=== PATIENT | female | born 1965 | race Caucasian/White ===

== ENCOUNTER 2019-06-23 08:13 | Inpatient (IN) | payer OTHER ==
[2019-06-20 18:11] VITALS: BMI 21.8
--- NOTE | 2019-06-21 14:42 | HP ---
Admitting History and Physical - Primary Care Physician PCP: Hector Crawford - Admission Chief Complaint: BRCA positive History of Present Illness: 53 year old postmenapausal female with strong family H/O breast cancer and BRCA2 +. TAHBSO prophylactically 2014 benign . mammogram and US were dne 11/10/2018 whch showed cystic changes. Breast MRI 12/2018 was negative. History Source: Patient Limitations to Obtaining History: No Limitations - Past Medical History Gastrointestinal: Yes: GERD ...LMP Comment: 2013 - Past Surgical History Past Surgical History: Yes: Hysterectomy (TAHBSO 2013 benign) - Advance Directives Advance Directives: Yes: Health Care Proxy - Smoking History Smoking history: Never smoked Have you smoked in the past 12 months: No - Alcohol/Substance Use Hx Alcohol Use: Yes (SOCIAL) Home Medications - Allergies Allergies/Adverse Reactions: Allergies Allergy/AdvReac Type Severity Reaction Status Date / Time levofloxacin [From Levaquin] Allergy Severe DIZZINESS Verified 06/20/19 18:16 Sulfa (Sulfonamide Allergy Severe Rash Verified 06/20/19 18:15 Antibiotics) - Home Medications Home Medications: Ambulatory Orders Fluticasone Prop 0.05% Nasal [Flonase -] 1 - 2 spray NS DAILY 06/20/19 Lansoprazole [Prevacid] 30 mg PO DAILY 06/20/19 Multivitamins [Tab-A-Vit -] 1 tab PO DAILY 06/20/19 Family Medical History Family Hx Cancer: Grandmother (maternal) (uterine ca), Mother (uterine/ fallopian cancer 54) Other Family History: mat [place] breast ca 60. mat cousins x 2 uterine ca 54 and another with lymphoma 35 Physical Examination Constitutional: Yes: No Distress Breast(s): Yes: Other (moderately ptotic C cup breasts no skin changes no palpable densities or adenopathy) Problem List - Problems (1) BRCA2 gene mutation positive in female Code(s): Z15.01 - GENETIC SUSCEPTIBILITY TO MALIGNANT NEOPLASM OF BREAST; Z15.02 - GENETIC SUSCEPTIBILITY TO MALIGNANT NEOPLASM OF OVARY; Z15.09 - GENETIC SUSCEPTIBILITY TO OTHER MALIGNANT NEOPLASM Assessment/Plan Bilateral total mastectomies with reconstruction
[2019-06-23] MEDS ORDERED: BUPIVACAINE HCL/PF 2.5 MG/ML - 30 ML VIAL IJ ONE (09:09)
[2019-06-23] MEDS ORDERED: PROPOFOL 20 ML ONE ×2 (09:11→12:10)
[2019-06-23] MEDS ORDERED: GENTAMICIN SO4 80 MG/2 ML VIAL ONE (09:12)
[2019-06-23] MEDS ORDERED: MIDAZOLAM HCL 2 MG/2 ML SINGLE DOSE VIAL ONE (09:12)
[2019-06-23] MEDS ORDERED: ceFAZolin SODIUM 1 GM VIAL ONE ×2 (09:12→09:15)
[2019-06-23] MEDS ORDERED: BUPIVACAINE LIPOSOME/PF (EXPAREL) 266 MG/20 ML VIAL ONE (09:13)
[2019-06-23] MEDS ORDERED: LIDOCAINE HCL/PF 2% SDV 5ML VIAL ONE (09:14)
[2019-06-23] MEDS ORDERED: ONDANSETRON 4 MG/2 ML VIAL IVPUSH PRN ×2 (09:16→12:49)
[2019-06-23] MEDS ORDERED: oxyCODONE HCL 5 MG TABLET PO PRN (09:16)
[2019-06-23] MEDS ORDERED: DEXAMETHASONE SOD PHOSPHATE 4 MG/1 ML VIAL ONE (09:40)
[2019-06-23] MEDS ORDERED: PATIENT'S OWN MEDICATION (NON-FORMULARY) (Lansoprazole [Prevacid] 30 MG) PO SCH (10:00)
[2019-06-23] MEDS ORDERED: FLUTICASONE PROP 0.05% 16 GM NASAL SPRAY NS SCH (10:00)
[2019-06-23] MEDS ORDERED: ROCURONIUM BROMIDE 50 MG/5 ML SYRINGE ONE (10:54)
[2019-06-23] MEDS ORDERED: BUPIVACAINE LIPOSOME/PF (EXPAREL) 266 MG/20 ML VIAL NR ONE (11:02)
[2019-06-23] MEDS ORDERED: BUPIVACAINE HCL/PF 0.25% (2.5MG/ML) 10 ML VIAL IJ ONE (11:02)
[2019-06-23] MEDS ORDERED: NEOSTIGMINE METHYLSULFATE 0.5 MG/ML - 10 ML MDV ONE (12:07)
--- NOTE | 2019-06-23 12:45 | OP ---
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
--- NOTE | 2019-06-23 12:47 | SURG ---
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 For further detail, please refer to operative report. Visit type - Case Type Case Type: Scheduled - Emergency Emergency Visit: No - New patient This patient is new to me today: Yes Date on this admission: 06/23/19
[2019-06-23] MEDS ORDERED: PROMETHAZINE HCL 25 MG/1 ML VIAL IVPUSH PRN (12:49)
--- NOTE | 2019-06-23 14:21 | OP ---
DATE OF OPERATION: 06/23/2019 PREOPERATIVE DIAGNOSIS: Genetic susceptibility for breast cancer BRCA2 positive. POSTOPERATIVE DIAGNOSIS: Genetic susceptibility for breast cancer BRCA2 positive status post bilateral mastectomies. PROCEDURE: Bilateral nipple-sparing mastectomies through an inferolateral approach with bilateral subpectoral direct implant reconstruction with Cortiva. ANESTHESIA: General endotracheal anesthesia. PRIMARY SURGEON: Velasquez Allen MD PUBLISHING EDITOR: VALERY Bernard PRIMARY SURGEON FOR THE BILATERAL DIRECT IMPLANT RECONSTRUCTION WITH CORTIVA: Velasquez Levy MD COMPLICATIONS: There were no complications. HISTORY: Briefly, the patient is a 53-year-old postmenopausal female of [place] descent with a family history with her mother who had uterine and fallopian tube cancer at age 54. Her maternal grandmother had uterine cancer. Her maternal great aunt had breast cancer in her 60s, and 2 maternal aunts had breast cancer at age 65 and 69. The patient ended up testing BRCA2 positive in 2012 and underwent a prophylactic MITALI/BSO in 2013. She decided to undergo risk reduction prophylactic mastectomy and had a mammography back in October 2018, which was negative. An MRI in December 2018 was negative. The patient was seen in the office and understood the risk reduction offered by prophylactic mastectomy and understood all risks, complications of the procedure. She understood our nipple-sparing technique and the fact that we do retroareolar biopsies at the time of surgery. If these show cancer, we would remove the nipples. She understood the lack of any evidence shown for doing prophylactic sentinel lymph node biopsy. She was seen by Plastic Surgery preoperatively and chose to have direct implant reconstruction with acellular dermal matrix. DESCRIPTION OF PROCEDURE: She was brought in for the procedure on June 23, 2019. In the holding area, site verification was made, and informed consent was obtained. She was marked preoperatively by the plastic surgeon. She was brought into the operating room and laid on the OR table in a supine position. Venodynes were placed on the lower extremities prior to induction. She received 2 g of Ancef prior to incision. Both breasts were sterilely prepped and draped in the usual fashion, and she underwent general endotracheal anesthesia. Time-out was performed. Bilateral inferior mammary incisions were marked out in the inframammary folds about 10 cm in length. A left mastoidectomy was 1st performed. Incision was made and the skin edges were everted and the breast was retracted inferiorly using Celio clamps. Skin flap was raised using the Peak radiofrequency device superiorly to the level of the clavicle, medially to the level of the sternum, laterally to the level of the latissimus, and inferiorly below the level of the inframammary fold. The breast was taken out off the pectoralis major muscle using electrocautery from inferomedial to superolateral and completely removed intact. It was oriented with a long lateral, short superior suture and weighted to allow for appropriate cosmetic result. Skin flaps were trimmed to remove all visible breast tissue and to obtain good cosmetic result. Retroareolar biopsy was taken underneath the left nipple areolar complex and sent for frozen section, came back negative, so the left nipple was spared. The wound was then copiously irrigated with warm, sterile saline, and hemostasis was achieved. The right breast was then approached. Again, a symmetrical 10-cm inframammary incision was made, and the skin edges were everted. The breast was retracted inferiorly using Wayan clamps, and the skin flap was raised using the Peak radiofrequency device superiorly to the level of the clavicle, medially to the level of the sternum, laterally and to the level above the latissimus, and inferiorly below the level of the inframammary fold. The breast was taken out off the pectoralis major muscle using electrocautery from inferomedial to superolateral and completely removed intact. It was oriented with a long lateral, short superior suture, and weighted to allow for appropriate cosmetic result. Skin flaps were trimmed and visualized to remove all visible breast tissue and for a good cosmetic result. A retroareolar biopsy was taken underneath the right nipple areolar complex and sent for frozen section and came back benign, so the right nipple was spared. Hemostasis was achieved, and the wound was copiously irrigated with warm sterile saline. At this point, Dr. Levy became the primary surgery, and he performed bilateral subpectoral direct implant reconstructions using Cortiva. The Cortiva was sewn into the inferolateral aspects of both pectoralis major muscles to allow for the direct implant reconstruction. Two Karl drains would be placed around each implant and brought through separate stab incisions on the lateral skin flaps and sutured in place using a 3-0 nylon suture. All wounds would be closed separately by Plastic Surgery. The patient will be extubated and recovered in the post anesthesia care unit. She will be admitted postoperatively for pain and wound management. We did inject Exparel 20 mL diluted in 20 mL of saline and 20 mL of Marcaine, and this was injected into the chest up bilaterally prior to the implant reconstructions for postoperative pain control. The patient will be admitted postoperatively for pain and wound management. All sponge and needle counts were correct at the end of the case, and estimated blood loss was about 125 mL. She was hemodynamically stable throughout. VELASQUEZ ALLEN M.D. [id number]
[2019-06-23] MEDS: CEFAZOLIN 1 GM/D5W 1 GRAM/50 ML BAG IVPB SCH ×2 (15:27→21:20)
[2019-06-23] MEDS: LACTATED RINGERS SOLUTION 1,000 ML IV SCH (15:42)
[2019-06-23] MEDS: DEXTROSE 5%-0.45% SALINE 1,000 ML IV SCH (15:42)
[2019-06-23] MEDS: oxyCODONE HCL 5 MG TABLET PO PRN ×2 (19:34→23:07)
[2019-06-23] MEDS: ACETAMINOPHEN 325 MG TABLET (FP) PO PRN (23:07)
[2019-06-24] MEDS: diazePAM 5 MG TABLET PO PRN ×3 (00:04→22:19)
[2019-06-24] MEDS: ACETAMINOPHEN 325 MG TABLET (FP) PO PRN ×4 (03:21→20:31)
[2019-06-24] MEDS: oxyCODONE HCL 5 MG TABLET PO PRN ×5 (03:22→20:31)
[2019-06-24] MEDS: CEFAZOLIN 1 GM/D5W 1 GRAM/50 ML BAG IVPB SCH ×4 (03:23→20:31)
[2019-06-24 08:00] LABS: HEMATOCRIT 30.7 % (32.4-45.2); HEMOGLOBIN 10.1 GM/dl (10.7-15.3); MCH 29.9 pg (25.7-33.7); MCHC 32.8 g/dl (32.0-36.0); MEAN CELL VOLUME 91.3 fl (80-96); MEAN PLT VOLUME 8.7 fl (7.5-11.1); PLATELET COUNT 168 K/MM3 (134-434); RBC 3.36 M/mm3 (3.60-5.2); WHITE BLOOD COUNT 6.1 K/mm3 (4.0-10.8)
[2019-06-24] MEDS: FLUTICASONE PROP 0.05% 16 GM NASAL SPRAY NS SCH (09:22)
[2019-06-24] MEDS: PANTOPRAZOLE 40 MG TABLET (FP) PO SCH (09:22)
--- NOTE | 2019-06-24 09:26 | PN ---
Progress Note (short form) - Note Progress Note: POD #1 bilateral nipple sparing mastectomy with prepectoral reconstruction with mesh and ADM. Patient seen and examined at bedside. Patient states she had some pain overnight which is better controlled. She has been OOB and ambulation without assistance. She is tolerating her diet and denies any CP, SOB, N/V, fever or chills. Vital Signs Temp 98.9 F 06/24/19 03:00 Pulse 77 06/24/19 03:00 Resp 19 06/24/19 03:00 BP 99/53 L 06/24/19 03:00 Pulse Ox 98 06/24/19 08:08 Intake & Output 06/23/19 06/23/19 06/24/19 11:59 23:59 11:59 Intake Total 1750 Output Total 590 75 Balance 1160 -75 Weight 127 lb Intake: IV 1200 D5-1/2Ns - 1,000 ml @ 100 400 mls/hr IV ASDIR BASHIR Rx#: [id number] IVPB 50 Oral 500 Output: Drainage 140 75 LEFT #1 0 20 LEFT #2 20 5 RIGHT #3 10 40 RIGHT #4 60 10 Urine 300 Void 300 Estimated Blood Loss 150 Other: Voiding Method Toilet Toilet # Unmeasured Voids Void 3 Height 5 ft 4 in Body Mass Index (BMI) 21.8 Weight Measurement Method Standing Scale CBC, BMP 06/24/19 07:21 PE: A&Ox3, NAD unlabored resp on RA Breasts, b/l flaps well perfused (Ioban dressing) nipples are pink and well perfused, incisions c/d/i with steris in place, SHARLA drains x 4 in good position and draining well. Problem List - Problems (1) BRCA2 gene mutation positive in female Assessment/Plan: Problem List Assessment/Plan: POD #1 bilateral nipple sparing mastectomy with prepectoral reconstruction with mesh and ADM, patient doing well. -Sydnie hugger to chest at all times when in bed. -OOB as tolerated -Encourage daily IS -surgical bra at all times -d/c planning for home Code(s): Z15.01 - GENETIC SUSCEPTIBILITY TO MALIGNANT NEOPLASM OF BREAST; Z15.02 - GENETIC SUSCEPTIBILITY TO MALIGNANT NEOPLASM OF OVARY; Z15.09 - GENETIC SUSCEPTIBILITY TO OTHER MALIGNANT NEOPLASM
--- NOTE | 2019-06-24 09:53 | PN ---
Progress Note, Physician Chief Complaint: High risk breast cancer due to gene positivity S/P bilateral total mastectomies implant and acellular matrix reconstruction POD#! History of Present Illness: Pain controlled with oxycodone and valium ,no nausea or fever , OOB - Current Medication List Current Medications: Active Medications Acetaminophen (Tylenol -) 650 mg PO Q4H PRN PRN Reason: FEVER Last Admin: 06/24/19 08:17 Dose: 650 mg Diazepam (Valium -) 5 mg PO BID PRN PRN Reason: MUSCLE SPASMS Last Admin: 06/24/19 09:21 Dose: 5 mg Fluticasone Propionate (Flonase -) 1 - 2 spray NS DAILY REPLACED BY [facility] Last Admin: 06/24/19 09:22 Dose: 1 spray Cefazolin Sodium (Ancef 1 Gm Premixed Ivpb -) 1 gram in 50 mls @ 100 mls/hr IVPB Q6H-IV BASHIR Stop: 06/30/19 14:59 Last Admin: 06/24/19 08:20 Dose: 100 mls/hr Dextrose/Sodium Chloride (D5-1/2ns -) 1,000 mls @ 100 mls/hr IV ASDIR REPLACED BY [facility] Last Admin: 06/23/19 15:42 Dose: Not Given Lactated Ringer's (Lactated Ringers Solution) 1,000 mls @ 125 mls/hr IV ASDIR BASHIR Last Admin: 06/23/19 15:42 Dose: Not Given Ondansetron HCl (Zofran Injection) 4 mg IVPUSH Q6H PRN PRN Reason: NAUSEA AND/OR VOMITING Oxycodone HCl (Roxicodone -) 5 mg PO Q4H PRN PRN Reason: PAIN LEVEL 1-5 Last Admin: 06/23/19 15:39 Dose: 5 mg Oxycodone HCl (Roxicodone -) 10 mg PO Q4H PRN PRN Reason: PAIN LEVEL 6-10 Last Admin: 06/24/19 08:16 Dose: 10 mg Pantoprazole Sodium (Protonix -) 40 mg PO DAILY REPLACED BY [facility] Last Admin: 06/24/19 09:22 Dose: 40 mg - Objective Vital Signs: Vital Signs Temperature 98.9 F 06/24/19 03:00 Pulse Rate 77 06/24/19 03:00 Respiratory Rate 19 06/24/19 03:00 Blood Pressure 99/53 L 06/24/19 03:00 O2 Sat by Pulse Oximetry (%) 98 06/24/19 08:08 Constitutional: Yes: No Distress Breast(s): Yes: Other (Bilateral Flaps viable, incisions intact, no hematoma SHARLA drains functiong well) Labs: CBC, BMP 06/24/19 07:21 Problem List - Problems (1) BRCA2 gene mutation positive in female Code(s): Z15.01 - GENETIC SUSCEPTIBILITY TO MALIGNANT NEOPLASM OF BREAST; Z15.02 - GENETIC SUSCEPTIBILITY TO MALIGNANT NEOPLASM OF OVARY; Z15.09 - GENETIC SUSCEPTIBILITY TO OTHER MALIGNANT NEOPLASM Assessment/Plan Iv antibiotics Spirometry SCD Oxycodone /valium prn OOB
--- NOTE | 2019-06-24 15:22 | PN ---
Progress Note (short form) - Note Progress Note: ANESTHESIA POSTOP 53 YO FEMALE POD#1 S/P BL MASTECTOMY, GETA Patient resting in bed. Tolerating PO. Pain responsive to PO meds. Ambulating and using IS. VSS, Afebrile Continue current care. Encouraged IS and continued ambulation.
[2019-06-24] MEDS: LACTATED RINGERS SOLUTION 1,000 ML IV SCH (15:39)
[2019-06-24] MEDS: DEXTROSE 5%-0.45% SALINE 1,000 ML IV SCH (15:39)
[2019-06-25] MEDS: oxyCODONE HCL 5 MG TABLET PO PRN ×3 (01:00→10:21)
[2019-06-25] MEDS: ACETAMINOPHEN 325 MG TABLET (FP) PO PRN ×2 (01:00→09:05)
[2019-06-25] MEDS: CEFAZOLIN 1 GM/D5W 1 GRAM/50 ML BAG IVPB SCH ×2 (02:03→09:05)
[2019-06-25] MEDS: diazePAM 5 MG TABLET PO PRN (09:05)
[2019-06-25] MEDS ORDERED: PT OWN MED DRAWER 7, Y5N ONE (09:35)
[2019-06-25] MEDS: FLUTICASONE PROP 0.05% 16 GM NASAL SPRAY NS SCH (09:36)
[2019-06-25] MEDS: DEXTROSE 5%-0.45% SALINE 1,000 ML IV SCH (09:36)
[2019-06-25] MEDS: PANTOPRAZOLE 40 MG TABLET (FP) PO SCH (09:36)
[2019-06-25 10:18] VITALS: BP 112/58; PULSE 94; TEMP 98.8
--- NOTE | 2019-06-25 10:23 | PN ---
Progress Note, Physician Chief Complaint: Genetic susceptibility for breast cancer BRCA2+ History of Present Illness: The patient has a strong family history for breast cancer and was found to be BRCA2 positive and decided to undergo bilateral prophylactic nipple sparing mastectomies. She was admitted postoperatively for pain and wound management. - Current Medication List Current Medications: Active Medications Acetaminophen (Tylenol -) 650 mg PO Q4H PRN PRN Reason: FEVER Last Admin: 06/25/19 09:05 Dose: 650 mg Diazepam (Valium -) 5 mg PO BID PRN PRN Reason: MUSCLE SPASMS Last Admin: 06/25/19 09:05 Dose: 5 mg Fluticasone Propionate (Flonase -) 1 - 2 spray NS DAILY [facility] Last Admin: 06/25/19 09:36 Dose: 2 spray Hydromorphone HCl (Dilaudid -) 4 mg PO Q4H PRN PRN Reason: PAIN LEVEL 4 - 6 Cefazolin Sodium (Ancef 1 Gm Premixed Ivpb -) 1 gram in 50 mls @ 100 mls/hr IVPB Q6H-IV BAHSIR Stop: 06/30/19 14:59 Last Admin: 06/25/19 09:05 Dose: 100 mls/hr Dextrose/Sodium Chloride (D5-1/2ns -) 1,000 mls @ 100 mls/hr IV ASDIR [facility] Last Admin: 06/25/19 09:36 Dose: Not Given Lactated Ringer's (Lactated Ringers Solution) 1,000 mls @ 125 mls/hr IV ASDIR BASHIR Last Admin: 06/24/19 15:39 Dose: Not Given Ondansetron HCl (Zofran Injection) 4 mg IVPUSH Q6H PRN PRN Reason: NAUSEA AND/OR VOMITING Oxycodone HCl (Roxicodone -) 5 mg PO Q4H PRN PRN Reason: PAIN LEVEL 1-5 Last Admin: 06/23/19 15:39 Dose: 5 mg Oxycodone HCl (Roxicodone -) 10 mg PO Q4H PRN PRN Reason: PAIN LEVEL 6-10 Last Admin: 06/25/19 05:53 Dose: 10 mg Pantoprazole Sodium (Protonix -) 40 mg PO DAILY [facility] Last Admin: 06/25/19 09:36 Dose: 40 mg - Objective Vital Signs: Vital Signs Temperature 99.5 F 06/25/19 07:57 Pulse Rate 86 06/25/19 07:57 Respiratory Rate 18 06/25/19 07:57 Blood Pressure 96/61 06/25/19 07:57 O2 Sat by Pulse Oximetry (%) 100 06/25/19 07:57 Constitutional: Yes: Well Nourished, No Distress Eyes: Yes: WNL HENT: Yes: WNL Neck: Yes: WNL Cardiovascular: Yes: Regular Rate and Rhythm Respiratory: Yes: Regular, CTA Bilaterally Gastrointestinal: Yes: Normal Bowel Sounds, Soft ...Rectal Exam: Yes: Deferred (Mastectomy wounds clean, dry, and intact. Drains functioning well. Skin flaps warm and viable.) Genitourinary: Yes: WNL Breast(s): Yes: Other Musculoskeletal: Yes: WNL Extremities: Yes: WNL Integumentary: Yes: WNL Wound/Incision: Yes: Clean/Dry, Well Approximated Neurological: Yes: Alert, Oriented ...Motor Strength: WNL Psychiatric: Yes: WNL Labs: CBC, BMP 06/24/19 07:21 Problem List - Problems (1) Genetic susceptibility to breast cancer Assessment/Plan: The patient is doing well POD#2 s/p bilateral nipple sparing mastectomies performed due to genetic susceptibility for breast cancer. Her wounds are clean , dry, and intact. Skin flaps warm and viable. Drains functioning well. She is using oxycontin for pain but tolerable. Stable for discharge today. Home on percocet for pain. Cefadroxil antibiotics. Follow up in office next week. Record drain outputs daily. Drain teaching prior to discharge. Code(s): Z15.01 - GENETIC SUSCEPTIBILITY TO MALIGNANT NEOPLASM OF BREAST
--- NOTE | 2019-06-25 10:29 | DS ---
Physical Examination Vital Signs: Vital Signs Temperature 98.8 F 06/25/19 10:17 Pulse Rate 94 H 06/25/19 10:17 Respiratory Rate 18 06/25/19 10:17 Blood Pressure 112/58 L 06/25/19 10:17 O2 Sat by Pulse Oximetry (%) 100 06/25/19 07:57 Constitutional: Yes: Well Nourished, No Distress Eyes: Yes: WNL HENT: Yes: WNL Neck: Yes: WNL Cardiovascular: Yes: Regular Rate and Rhythm Respiratory: Yes: Regular, CTA Bilaterally Gastrointestinal: Yes: Normal Bowel Sounds, Soft ...Rectal Exam: Yes: Deferred Renal/: Yes: WNL Breast(s): Yes: Other (Matectomy wounds clean, dry, and intact. Skin flaps warm and viable. Drains functioning well.) Musculoskeletal: Yes: WNL Extremities: Yes: WNL Integumentary: Yes: WNL Wound/Incision: Yes: Clean/Dry, Well Approximated Neurological: Yes: Alert, Oriented ...Motor Strength: WNL Psychiatric: Yes: WNL Labs: CBC, BMP 06/24/19 07:21 Discharge Summary Problems reviewed: Yes Reason For Visit: GENETIC SUSCEPTIBILITY Current Active Problems Genetic susceptibility to breast cancer (Acute) Procedures: Principal: Bilateral Nipple Sparing Mastectomies with Subpectoral Direct to Implant Reconstructions with Acellular Dermal Matrix Hospital Course: The patient was admitted postoperatively and had good pain control on oxycontin by POD#2 for discharge. Wounds were clean, dry, and intact and skin flaps were warm and viable. Drains teaching was performed. She is to follow up in 1 week with Drs. Crawford and Cam. No heavy lifting or exercise. No bath/ shower until drains removed. Keep compressive bra in place day and night. Record drain outputs daily. Plan of Treatment: Follow up postoperatively in office in 1 week. Condition: Good - Instructions Diet, Activity, Other Instructions: Post Operative Instructions - [facility] We hope your recovery will be uneventful. For those of you who have been given general anesthesia, there is a possibility you might have some lightheadedness and possibly nausea. It is important that each patient, especially those who have had general anesthesia, follow these instructions, please: 1. Do NOT operate a motor vehicle for 24 hours. 2. Do NOT drink any alcoholic beverages for 24 hours. 3. Do NOT take any sedatives, narcotics, or tranquilizers for 24 hours unless specifically ordered by your surgeon. 4. Do NOT undertake any strenuous exercise or outside activity for 24 hours unless specifically permitted by your surgeon. 5. Eat light foods that are easy to digest. If you have any problems with nausea and vomiting, lie down and rest. If it continues, call your surgeon. 6. Call your surgeon AT ONCE if you have problems with: a. Bleeding b. Urinating c. Excessive pain or drainage d. Numbness If any problems occur, call your physician first. If you cannot reach him/her, call the Ambulatory Surgery Unit at [phone], or the Emergency Room at . Follow up with Drs. Crawford / Cameron in 7 days. Medication: Vicodin E-S OR Percocet 1-2 tablets every 4-6 hrs as needed for 5-7 days. Wound Care: Keep wound dry and clean for 48 hours. You may remove the dressing after 48 hours and may shower. Keep steri-strips in place until follow-up appointment No heavy lifting or strenuous activities. BREAST SURGERY INSTRUCTIONS Kayden Crawford M.D., FACS Hector Crawford M.D., FACS Igor Barnes M.D., FACS 1. Please call the office at to make a follow up appointment with your surgeon. This number can be also used for any urgent issues you may have. 2. Call us immediately if any of the following occur: *Bleeding from the incision or drain site (a small amount is normal) *Fever or chills *Redness and worsening tenderness around the surgical site *Drainage of pus or fluid from the incision or drain site 3. You may change the surgical dressing two (2) days after your surgery, and may shower then. If you have drains, you may shower after they have been removed, until then take a sponge bath. 4. It is normal for there to be some bruising and tenderness around the surgical site, and the breast may also be firm in this area. 5. Your surgeon used 3M DuraPrep Surgical Solution, a bacteria-killing skin preparation. It is recommended that this film remain on the skin after the procedure. The film will gradually wear away. If, however, early removal is desired: 1. Apply 8610 or 8611 3M Remover solution to the prepped area, keeping away from the wound edge or puncture site. Wipe off with a disposable towel. OR 2. Soak gauze with 70% Isopropyl alcohol and place on the prepped area for at least 40 seconds. Lightly scrub to remove the solution. 6. Please wear a comfortable bra (sports or surgical bra) all day and all night until your first follow-up visit with your surgeon. 7. The pain medicine you have been prescribed may make you constipated; make sure you drink plenty of water. You may use an over the counter laxative if needed. 8. You may resume your normal diet after surgery, although you may want to avoid rich foods for the first twenty-four (24) hours after surgery. Alcoholic drinks should be avoided while taking the prescribed pain medicine. 9. You may resume normal activities as long as there is no discomfort, but do not do upper body exercises until after your follow-up appointment. Do not lift anything heavier than a large phone book. You may resume driving once you have stopped taking the prescribed pain medicine and feel comfortable doing arm movements. WEAR BRA, NO shower, Empty and record SHARLA output Referrals: Hector Crawford MD [Staff Physician] - Gagan Levy MD [Staff Physician] - - Home Medications Comprehensive Discharge Medication List: Ambulatory Orders Fluticasone Prop 0.05% Nasal [Flonase -] 1 - 2 spray NS DAILY 06/20/19 Lansoprazole [Prevacid] 30 mg PO DAILY 06/20/19 Multivitamins [Multivit ([facility] Formulary)] 1 tab PO DAILY 06/20/19 Cefadroxil 500 mg PO BID #20 capsule 06/24/19 Diazepam [Valium] 5 mg PO BID PRN #10 tablet MDD 2 06/24/19 Oxycodone HCl/Acetaminophen [Percocet 5-325 mg Tablet] 1 - 2 tab PO Q6H PRN #30 tab MDD 6 06/24/19
--- NOTE | 2019-06-26 13:11 | OP ---
DATE OF OPERATION: 06/23/2019 SURGEON: Velasquez Levy MD SURGEON STAKE DRIVER: Mary Jay PA-C NOTE: This is the combined dictation with Dr. Velasquez Crawford for bilateral implant and AlloDerm reconstruction. PREOPERATIVE DIAGNOSES: 1. Bilateral acquired chest wall deformity status post bilateral mastectomy (611.89). 2. Personal history of genetic carcinoma. POSTOPERATIVE DIAGNOSES: 1. Bilateral acquired chest wall deformity status post bilateral mastectomy (611.89). 2. Personal history of genetic carcinoma. PROCEDURE: 1. Right immediate breast reconstruction utilizing immediate insertion of silicone breast implant and AlloDerm reconstruction. 2. Left immediate breast reconstruction utilizing immediate insertion of silicone breast implant and AlloDerm reconstruction. 3. Intravenous injection of indocyanine green dye and intraoperative diagnostic evaluation of non-coronary intraoperative fluorescein vascular angiography x 2. SURGEON: Dr. Bijal Levy ANESTHESIA: General. OPERATIVE PROCEDURE IN DETAIL: The patient was taken to the operating room. After induction of general anesthesia in the supine position, both arms were extended and padded. Venodyne boots were placed. The entire chest wall was painted with ChloraPrep solution over its entire extent, and sterile drapes were placed in the usual fashion. The markings, which had been made in the standing position preoperatively, were reoutlined with the patient's knowledge. Time-out procedure was performed. Attention was turned by Dr. Crawford to the mastectomies. Bilateral inframammary incisions were made and Dr. Crawford performed mastectomies. This will be dictated under separate cover. Upon completion of the mastectomies, the wounds were copiously irrigated and attention was turned to the right breast. A subpectoral dissection was begun on the right breast, superiorly from the second rib, medially to the sternal fibers, and down to the inframammary fold, elevating the pectoralis major muscle from its insertion. At this point, an 8.0 x 16.0 sheet of AlloDerm was brought into the field and sutured superiorly along the pectoralis major muscle after rehydration. This was carried along the lateral mammary fold and down the side of the breast reconstruction. At this point, an implant was chosen. She had Cortiva 1-mm tailored allograft dermis, large size, placed bilaterally, and then she had Sientra smooth, round, high profile, 590 mL implants, style 107, placed bilaterally. The left breast tissue removed was 562 gm, and the right breast approximately 454 gm. This implant was placed and then sutured with 3-0 Vicryl suture continued along the inframammary fold, completely covering the implant itself. The exact same procedure was carried out symmetrically on the opposite breast, also placing an implant in the same subpectoral pocket. She had Cortiva 1-mm tailored allograft dermis, large size, placed bilaterally, and then she had Sientra smooth, round, high profile, 590 mL implants, style 107, placed bilaterally. Good symmetry was seen in the sitting position. After the implants were in place, the patient was injected with 10 mL of indocyanine green dye and the Spy imaging system was brought into the field. The skin flowed to the right and left breasts and the nipple areolar complex, and the entire skin flaps were evaluated and seen to be viable with good blood flow. Spy intraoperative angiogram showing good nipple-areolar complex flow and skin viability. Two Karl drains were brought out through separate stab wounds laterally. The Smart Infuser pump catheter was inserted medially and into the subpectoral position. Both wounds were closed symmetrically using 3-0 PDS suture on the deep tissue, 3-0 in a deep dermal fashion, and 4-0 in a subcuticular fashion. Both wounds were dressed sterilely with Mastisol and Steri-Strips with a surgical bra and a compression strap. The patient tolerated the procedure well. She was awakened, extubated and transferred to the recovery room in satisfactory condition. The chemistry research assistant was present during the entire portion of the operation and closure. VELASQUEZ LEVY M.D. [id number]
--- NOTE | 2019-06-27 15:35 | PATH ---
Surgical Pathology Report Patient Name: LIANA CLARKE Med. Rec. #: [id number] /Age/Gender: 1965 (Age: 53) / F Account: [id number] Location: [facility] Taken: 06/23/2019 Received: 06/23/2019 Reported: 06/27/2019 Physicians: Hector Crawford M.D. Specimen(s) Received A: RIGHT BREAST RETROAREOLLAR BIOPSY (FS) B: LEFT BREAST RETROAREOLLAR BIOPSY (FS) C: RIGHT BREAST MASTECTOMY D: LEFT BREAST MASTECTOMY Clinical History BRCA2+, B/L prophylactic mastectomy Intraoperative Consult Diagnosis A. Right breast retroareolar biopsy, frozen section: Negative for malignancy. B. Left breast retroareolar biopsy, frozen section: Negative for malignancy. Mary Perez 06/23/19 Final Diagnosis A. BREAST, RIGHT, RETROAREOLAR BIOPSY (FS): BENIGN BREAST TISSUE; NEGATIVE FOR MALIGNANCY. B. BREAST, LEFT, RETROAREOLAR BIOPSY (FS): BENIGN BREAST TISSUE; NEGATIVE FOR MALIGNANCY. C. BREAST, RIGHT, NIPPLE-SPARING, MASTECTOMY: BENIGN BREAST TISSUE SHOWING FIBROCYSTIC CHANGES INCLUDING MICROCYSTS WITH APOCRINE METAPLASIA AND FOCAL CHANGES SUGGESTIVE OF CYST RUPTURE WITH REACTION, STROMAL FIBROSIS AND ASSOCIATED CALCIFICATIONS. D. BREAST, LEFT, NIPPLE-SPARING MASTECTOMY: BENIGN BREAST TISSUE SHOWING SMALL RADIAL SCAR AND FIBROCYSTIC CHANGES INCLUDING MICROCYSTS WITH APOCRINE METAPLASIA, STROMAL FIBROSIS AND ASSOCIATED CALCIFICATIONS. Electronically Signed Mary Azul M.D. Gross Description A. Received fresh for frozen section evaluation, labeled, "right breast retroareolar biopsy" is a 1.5 x 1 x 0.3 cm portion of red and pink-healy tissue. Frozen section is performed on the specimen. The frozen section residue is entirely submitted in one cassette. B. Received fresh for frozen section evaluation, labeled, "left breast retroareolar biopsy" is a 1.7 x 1 x 0.3 cm portion of red and pink-healy tissue. Frozen section is performed on the specimen. The frozen section residue is entirely submitted in one cassette. C. Received in formalin, labeled "right breast mastectomy," is a 458 gram, 14.0 x 13.0 x 4.4 cm. right mastectomy specimen with a short suture marking the superior aspect and a long suture marking the lateral aspect of the specimen, per the surgeon. There is no skin or nipple present. The deep margin is inked green and the anterior soft tissue margin is inked red. The specimen is serially sectioned from lateral to medial. Sectioning reveals abundant dense, white, focally firm fibrous tissue. [employer] sections are submitted in 14 cassettes as follows: 1-3-upper outer quadrant; 4-6-lower outer quadrant; 7-9-upper inner quadrant; 10-12-lower inner quadrant; 13-anterior soft tissue margin; 14-deep margin. D. Received in formalin, labeled "left breast mastectomy," is a 589 gram, 17.0 x 16.0 x 3.8 cm. left mastectomy specimen with a short suture marking the superior aspect and a long suture marking the lateral aspect of the specimen, per the surgeon. There is no skin or nipple present. The deep margin is inked green and the anterior soft tissue margin is inked red. The specimen is serially sectioned from medial to lateral. Sectioning reveals abundant dense, white, focally firm fibrous tissue. [employer] sections are submitted in 14 cassettes as follows: 1-3-upper outer quadrant; 4-6-lower outer quadrant; 7-9-upper inner quadrant; 10-12-lower inner quadrant; 13-anterior soft tissue margin; 14-deep margin. Time to formalin fixation: 45 minutes Total formalin fixation time: Approximately 30 hours. AE/06/23/2019 ebram/06/23/2019
== END 2019-06-25 11:12 | disposition home or self-care (01) | DRG 585 ==
LOC: FM/S 08:13
PROVIDERS: ADMIT Surgery Surgical Oncology; ATTEND Surgery Surgical Oncology
PROC: 4A1GXSH Monitoring of Skin and Breast Vascular Perfusion using Indocyanine Green Dye, External Approach (ICD-10-PCS; 2019-06-23)
PROC: 0HTV0ZZ Resection of Bilateral Breast, Open Approach (ICD-10-PCS; principal; 2019-06-23 09:51)
PROC: 0HRV0JZ Replacement of Bilateral Breast with Synthetic Substitute, Open Approach (ICD-10-PCS; 2019-06-23 09:51)
DX: Z40.01 Encounter for prophylactic removal of breast (principal); Z15.01 Genetic susceptibility to malignant neoplasm of breast; K21.9 Gastro-esophageal reflux disease without esophagitis; M95.4 Acquired deformity of chest and rib; Z15.02 Genetic susceptibility to malignant neoplasm of ovary
CPT/HCPCS: 36415; 85027; 88307-TC; 88331-TC; 94760